=== PATIENT | female | born 1985 | race Caucasian/White ===

== ENCOUNTER → 2017-01-18 | Outpatient (CLI) | payer BC ==
[~2017-01-18] MED LIST: BCPILLS PO
--- NOTE | 2017-01-18 09:16 | DIAGNOSTIC IMAGING REPORT ---
LEFT RIBS UNILATERAL WITH PA CHEST CLINICAL HISTORY: Left rib pain. COMPARISON STUDY: No previous studies for comparison. FINDINGS: There is no pneumothorax or pleural effusion. Lungs are clear. Cardiac size is normal. Mediastinal contours are normal. No acute left rib fractures are identified. No osseous lesions are identified within the left ribs by radiography. IMPRESSION: No pneumothorax. No acute left rib fractures identified. Unremarkable chest radiograph and left rib series. Electronically signed by: Robbin Freed M.D. 01/18/2017 9:15 AM Dictated Date/Time: 01/18/2017 9:10 AM
== END | disposition home or self-care (01) ==
LOC: C.RAD1850 08:45
PROVIDERS: ATTEND Family Medicine
DX: R07.89 Other chest pain (principal)

== ENCOUNTER → 2017-04-18 | Outpatient (CLI) | payer BC ==
--- NOTE | 2017-04-18 13:00 | DIAGNOSTIC IMAGING REPORT ---
KUB HISTORY: Acute diarrhea DIARRHEA COMPARISON: Chest radiographs 01/18/2017 FINDINGS: The bowel gas pattern is non-obstructive. No significant bowel air-fluid levels identified. There is no organomegaly. No renal calculi. No ureteral calculi. Probable phleboliths of the pelvis. No pneumoperitoneum or pneumatosis. No fracture. IMPRESSION: Nonobstructive bowel gas pattern. Electronically signed by: Balta Reyes M.D. 04/18/2017 12:58 PM Dictated Date/Time: 04/18/2017 12:57 PM
== END | disposition home or self-care (01) ==
LOC: C.RAD1850 12:31
PROVIDERS: ATTEND Internal Medicine Gastroenterology
DX: R19.7 Diarrhea, unspecified (principal); K64.9 Unspecified hemorrhoids